=== PATIENT | female | born 1995 | race African-American/Black ===

== ENCOUNTER 2019-10-23 01:53 | Emergency (ER) | payer SELFPAY ==
[~2019-10-23] VITALS: Ht 162.6 cm; Wt 60.8 kg
[2019-10-23 03:18] LABS: Alcohol, Urine < 3.0 mg/dL (0-5); Amphetamine Screen, Urine NEGATIVE (NEGATIVE); Barbiturate Scree,Urine NEGATIVE (NEGATIVE); Benzodiazephine Screen, Urine NEGATIVE (NEGATIVE); Cannabinoid Screen, Urine POSITIVE (NEGATIVE); Cocaine Screen, Urine NEGATIVE (NEGATIVE); Phencyclidine Screen, Urine NEGATIVE (NEGATIVE)
[2019-10-23 03:20] LABS: Urine Bacteria FEW /hpf (None Seen); Urine Blood Negative /uL (Negative); Urine Specific Gravity 1.017 (1.001-1.035); Urine WBC 1 /hpf (0 - 5)
[2019-10-23 03:26] LABS: Opiate Scree,Urine NEGATIVE (NEGATIVE)
[2019-10-23 05:09] VITALS: BP 108/58
== END 2019-10-23 07:10 | disposition home or self-care (01) ==
LOC: EDBD 01:53 → ER 01:55
DX: T42.6X1A Poisoning by other antiepileptic and sedative-hypnotic drugs, accidental (unintentional), initial encounter (principal); H65.93 Unspecified nonsuppurative otitis media, bilateral; H10.9 Unspecified conjunctivitis; F31.9 Bipolar disorder, unspecified; Y92.89 Other specified places as the place of occurrence of the external cause
CPT/HCPCS: 36415; 80307; 81001; 81025; 84484; 93005